=== PATIENT | female | born 1995 | race Caucasian/White ===

== ENCOUNTER 2024-05-03 16:15 | Emergency (ER) | payer OTHER ==
[~2024-05-03] VITALS: Ht 165.1 cm; Wt 98.0 kg
[2024-05-03 16:23] VITALS: BP 132/89; TEMP 97.9
[2024-05-03 19:02] VITALS: O2SAT 99
== END 2024-05-03 19:03 | disposition home or self-care (01) ==
LOC: ER 16:23
DX: R51.9 Headache, unspecified (principal); Z60.2 Problems related to living alone

== ENCOUNTER 2024-09-03 21:22 | Emergency (ER) | payer OTHER ==
[~2024-09-03] VITALS: Ht 165.1 cm; Wt 93.9 kg
[2024-09-03] MEDS ORDERED: ACETAMINOPHEN ES 500 MG TABLET ONE (23:06)
[2024-09-03] MEDS: ACETAMINOPHEN ES 500 MG TABLET PO ONE (23:12)
[2024-09-03 23:15] LABS: APPEARANCE,URINE SLIGHTLY CLOUDY (CLEAR); BLOOD, URINE TRACE-INTA Ery/uL (NEGATIVE); LEUKOCYTE ESTERASE ,URINE 3+ (NEGATIVE); NITRITE, URINE NEGATIVE (NEGATIVE); UGLUCOSE NEGATIVE (NEGATIVE)
[2024-09-03 23:31] LABS: PLATELET COUNT (AUTO) 293 K/uL (150-450); RED BLOOD CELL COUNT(AUTO) 4.31 MIL/uL (4.0-5.2); RED CELL DISTRIBUTION WIDTH 13.7 % (11.5-15.0); WHITE BLOOD COUNT (AUTO) 8.7 K/uL (4.3-11.0)
[2024-09-03 23:36] LABS: CALCIUM, SERUM 8.7 mg/dL (8.5-10.1); CREATININE 0.8 mg/dL (0.6-1.3); SODIUM SERUM 135.0 mmol/L (136-145); UREA NITROGEN, BLOOD 10.0 mg/dL (7-18)
[2024-09-03 23:38] LABS: ADD URINE CULTURE YES; SQUAMOUS EPITHELIAL CELL,UR Moderate /HPF (None Seen)
[2024-09-03 23:41] LABS: ASPARTATE AMINOTRANSFERASE 15.0 U/L (15-37); TOTAL PROTEIN, SERUM 7.6 g/dL (6.4-8.2)
[2024-09-04] MEDS ORDERED: CEPHALEXIN MONOHYDRATE 500 MG CAPSULE PO ONE (02:29)
[2024-09-04] MEDS: CEPHALEXIN MONOHYDRATE 500 MG CAPSULE PO ONE (02:37)
[2024-09-04] MEDS ORDERED: CEPH500C2 PO (02:58)
[2024-09-04] MEDS ORDERED: IBUP-1490 PO (03:56)
[2024-09-04 05:53] VITALS: BP 115/71; TEMP 98; O2SAT 97
== END 2024-09-04 05:54 | disposition home or self-care (01) ==
LOC: ER 21:25
DX: N39.0 Urinary tract infection, site not specified (principal); R10.2 Pelvic and perineal pain; F41.9 Anxiety disorder, unspecified; F32.A Depression, unspecified; Z60.2 Problems related to living alone; Z59.00 Homelessness unspecified
CPT/HCPCS: 36415; 76856-TC; 80048-TC; 80076-TC; 81001; 83690-TC; 84702-TC; 85025-TC; 87086-TC

== ENCOUNTER 2024-09-08 17:23 | Emergency (ER) | payer OTHER ==
[~2024-09-08] VITALS: Ht 165.1 cm; Wt 93.9 kg
[~2024-09-08 17:23] MED LIST: CEPH500C2 PO; IBUP-1490 PO
[2024-09-08 17:37] VITALS: TEMP 99.5
[2024-09-08] MEDS ORDERED: ONDANSETRON HCL/PF 4 MG/2 ML VIAL ONE (18:04)
[2024-09-08] MEDS ORDERED: KETOROLAC TROMETHAMINE INJ 30 MG/ML VIAL ONE (18:04)
[2024-09-08] MEDS ORDERED: ACETAMINOPHEN ES 500 MG TABLET ONE (18:05)
[2024-09-08 18:07] LABS: APPEARANCE,URINE CLEAR (CLEAR); BLOOD, URINE Trace-intact Ery/uL (NEGATIVE); LEUKOCYTE ESTERASE ,URINE Small (NEGATIVE); NITRITE, URINE NEGATIVE (NEGATIVE); UGLUCOSE Negative (NEGATIVE)
[2024-09-08 18:09] LABS: ADD URINE CULTURE YES; PREGNANCY TEST URINE QUAL NEGATIVE (NEGATIVE); SQUAMOUS EPITHELIAL CELL,UR Few /HPF (None Seen)
[2024-09-08] MEDS: ACETAMINOPHEN ES 500 MG TABLET PO ONE (18:09)
[2024-09-08] MEDS: ONDANSETRON HCL/PF - ER 4 MG/2 ML VIAL IV ONE (18:10)
[2024-09-08] MEDS: IV NS 0.9% 1,000 ML BAG IV ONE (18:10)
[2024-09-08] MEDS: KETOROLAC TROMETHAMINE INJ 30 MG/ML VIAL IV ONE (18:11)
[2024-09-08] MEDS ORDERED: IV NS 0.9% 250 ML IV ONE (18:14)
[2024-09-08] MEDS ORDERED: IOHEXOL-300 100 ML VIAL IV ONE (18:14)
[2024-09-08 18:16] LABS: PLATELET COUNT (AUTO) 271 K/uL (150-450); RED BLOOD CELL COUNT(AUTO) 4.00 MIL/uL (4.0-5.2); RED CELL DISTRIBUTION WIDTH 14.1 % (11.5-15.0); WHITE BLOOD COUNT (AUTO) 8.2 K/uL (4.3-11.0)
[2024-09-08 18:23] LABS: CALCIUM, SERUM 8.6 mg/dL (8.5-10.1); CREATININE 1.2 mg/dL (0.6-1.3); SODIUM SERUM 137.0 mmol/L (136-145); UREA NITROGEN, BLOOD 12.0 mg/dL (7-18)
[2024-09-08 18:29] LABS: ASPARTATE AMINOTRANSFERASE 14.0 U/L (15-37); TOTAL PROTEIN, SERUM 7.0 g/dL (6.4-8.2)
[2024-09-08] MEDS ORDERED: CEFTRIAXONE 1GM BAG (ER ONLY) 50 ML IV ONE (18:41)
[2024-09-08] MEDS: CEFTRIAXONE 500 MG VIAL IV ONE (18:45)
[2024-09-08] MEDS ORDERED: DOXY-326 PO (19:15)
[2024-09-08 19:42] VITALS: BP 125/85; O2SAT 96
[2024-09-09 15:19] LABS: HIV-1/2 ANTIBODY NON REACTIVE (NONREACTIVE)
[2024-09-10 08:07] LABS: CHLAMYDIA TRACHOMATIS NAA Negative (Negative); NEISSERIA GONORRHOEAE NAA Negative (Negative)
[2024-09-10 11:07] LABS: RAPID PLASMA REAGIN QUAL. Non Reactive (Non Reactive)
== END 2024-09-08 19:20 | disposition admitted as inpatient to this hospital (09) ==
LOC: ER 17:28
DX: R10.2 Pelvic and perineal pain (principal); R30.0 Dysuria; Z20.2 Contact with and (suspected) exposure to infections with a predominantly sexual mode of transmission; F17.200 Nicotine dependence, unspecified, uncomplicated; Z60.2 Problems related to living alone; Z79.899 Other long term (current) drug therapy; Z59.00 Homelessness unspecified
CPT/HCPCS: 99285; 74177; 96365; 96375; 96361; 86593; 86592; 85025; 80048; 87086; 83690; 80076; 84703; 81001; 36415; 87806; 87491; 87591; J1885; J2405 ×2; J7030; J7050; J0696; Q9967